=== PATIENT | female | born 1985 ===

== ENCOUNTER → 2018-09-24 15:54 | Observation (INO) ==
[2018-09-24 13:36] LABS: Basophils % 0.2 %; Eosinophils # 0.1 K/mcL (0.0-0.6); Eosinophils % 0.6 %; Hematocrit 36.4 % (35.3-44.9); Hemoglobin 12.9 g/dL (11.5-15.4); Immature Granulocytes % 0.5 % (0-4); Lymphocytes # 1.3 K/mcL (0.6-4.6); Lymphocytes % 11.3 %; Mean Corpuscular HGB Conc 35.4 g/dL (31.6-35.5); Mean Corpuscular Hemoglobin 33.2 pg (28.0-33.3); Mean Corpuscular Volume 93.8 fL (83.0-100.0); Monocytes # 0.9 K/mcL (0.0-1.3); Monocytes % 7.4 %; Neutrophils # 9.4 K/mcL (1.6-8.9); Platelet Count 190 K/mcL (140-400); Red Blood Count 3.88 M/mcL (3.82-4.97)
[2018-09-24 13:56] LABS: Amphetamine Screen,Urine Negative ng/mL (Cutoff=1000); Barbiturate Screen,Urine Negative ng/mL (Cutoff=200); Benzodiazepines Screen,Urine Negative ng/mL (Cutoff=200); Cannabinoid Screen,Urine Negative ng/mL (Cutoff = 50); Cocaine Screen,Urine Negative ng/mL (Cutoff= 300); Creatinine,Urine 166 mg/dL; Opiate Screen,Urine Negative ng/mL (Cutoff=300); Phencyclidine Screen,Urine Negative ng/mL (Cutoff=25); Protein/Creatinine Ratio,Urine 0.23 mg/mg (0.00-0.20)
[2018-09-24 13:57] LABS: Alanine Aminotransferase 8 Units/L (7-52); Aspartate Amino Transferase 15 Units/L (13-39); BUN/Creatinine Ratio 18 (6-26); Blood Urea Nitrogen 11 mg/dL (6-20); Lactate Dehydrogenase 161 Units/L (140-271); Uric Acid 4.7 mg/dL (2.3-7.6); eGFR For Non-African Americans > 60 (> 60)
--- NOTE | 2018-09-24 14:23 | OB/GYN Progress Note ---
Date of Encounter: 09/24/18 Time of Encounter: 14:20 - Assessment and Plan (1) 37 weeks gestation of Current Visit: Yes Status: Acute Pre-eclampsia labs WNL Reactive NST Serial blood pressures WNL IV fluids for rehydration given Discharge home with labor precautions and pre-eclampsia precautions Follow up in office as scheduled on and PRN POC per consult with Dr Stehpenson Subjective - Subjective Principal diagnosis: Pre-eclampsia Evaluation Interval history: Ms Wasserman is a at 37 weeks and 1 day that presents to triage with c/o hot flashes at work with a blood pressure of 150's/90's. She states she did work in her yard outside all day yesterday with minimal water intake. She states positive movement. She denies headaches, vision changes, epigastric pain, leaking of fluid, vaginal discharge, and contractions. She has been seen by Dr Kim for her care. She has had 3 previous vaginal deliveries without complications. Antepartum ROS: movement normal Objective - Exam FHR comments: FHTs baseline 150 moderate variability with 15 x 15 accels and no decels Uterine irritability per toco. Mild contractions per palpation with soft resting tone. Contractions every 1-4 minutes lasting 20-40 seconds Auscultation: bilateral: normal Abdomen: Present: normal appearance, soft, gravid Uterus: Present: normal. Absent: firm, tenderness - Labs Labs: Abnormal lab results WBC 11.8 K/mcL (4.3-11.1) H 09/24/18 13:10 9.4 K/mcL (1.6-8.9) H 09/24/18 13:10 Protein/Creatinin Ratio 0.23 mg/mg (0.00-0.20) H 09/24/18 13:10 38 mg/dL (1-14) H 09/24/18 13:10
[~2018-09-24 15:54] MED LIST: Ringers Solution, Lactated 1,000 ML IVC ONE
== END | disposition home or self-care (01) ==
LOC: 1NENULAB
PROVIDERS: ADMIT Advanced Practice Midwife; ATTEND Advanced Practice Midwife

== ENCOUNTER 2018-10-07 07:30 | Inpatient (IN) ==
[2018-10-07] MEDS ORDERED: Famotidine 20 MG/2 ML VIAL IVP PRN (07:52)
[2018-10-07] MEDS ORDERED: Metoclopramide 10 MG/2 ML VIAL IVP PRN (07:52)
[2018-10-07] MEDS ORDERED: Ondansetron 4 MG/2 ML VIAL IVP PRN (07:52)
[2018-10-07] MEDS ORDERED: *HR* Nalbuphine 10 MG/ML AMPUL IVP PRN (07:52)
[2018-10-07] MEDS ORDERED: Naloxone 0.4 MG/ML INJ IVP PRN (07:52)
[2018-10-07] MEDS ORDERED: Oxytocin 20 units/ LR 1000 mL 20 UNIT/1,000 ML BAG IVC SCH ×2 (08:00→21:02)
[2018-10-07] MEDS ORDERED: Ringers Solution, Lactated 1,000 ML IVC SCH (08:00)
[2018-10-07 08:28] LABS: Basophils % 0.2 %; Eosinophils # 0.1 K/mcL (0.0-0.6); Hematocrit 36.1 % (35.3-44.9); Hemoglobin 12.8 g/dL (11.5-15.4); Immature Granulocytes % 0.5 % (0-4); Lymphocytes # 1.5 K/mcL (0.6-4.6); Lymphocytes % 14.1 %; Mean Corpuscular HGB Conc 35.5 g/dL (31.6-35.5); Mean Corpuscular Hemoglobin 33.4 pg (28.0-33.3); Mean Corpuscular Volume 94.3 fL (83.0-100.0); Mean Platelet Volume 10.4 fL (9.4-12.4); Monocytes # 0.8 K/mcL (0.0-1.3); Monocytes % 7.9 %; Neutrophils # 7.9 K/mcL (1.6-8.9); Platelet Count 175 K/mcL (140-400); Red Blood Count 3.83 M/mcL (3.82-4.97); Segmented Neutrophils % 76.3 %
--- NOTE | 2018-10-07 08:46 | Event Note ---
Date of Encounter: 10/07/18 Time of Encounter: 08:44 Discussed cervical ripening balloon procedure with patient. She is agreeable to proceed. Double cervical ripening balloon inserted without difficulty. 80ml sterile water instilled into uterine balloon, 60 mL sterile water instilled into vaginal balloon. Patient tolerated with minimal discomfort.
[2018-10-07 08:47] LABS: Alanine Aminotransferase 8 Units/L (7-52); Aspartate Amino Transferase 14 Units/L (13-39); BUN/Creatinine Ratio 17 (6-26); Blood Urea Nitrogen 9 mg/dL (6-20); Lactate Dehydrogenase 154 Units/L (140-271); Uric Acid 4.4 mg/dL (2.3-7.6); eGFR For Non-African Americans > 60 (> 60)
[2018-10-07 09:11] LABS: Amphetamine Screen,Urine Negative ng/mL (Cutoff=1000); Barbiturate Screen,Urine Negative ng/mL (Cutoff=200); Benzodiazepines Screen,Urine Negative ng/mL (Cutoff=200); Cannabinoid Screen,Urine Negative ng/mL (Cutoff = 50); Cocaine Screen,Urine Negative ng/mL (Cutoff= 300); Opiate Screen,Urine Negative ng/mL (Cutoff=300); Phencyclidine Screen,Urine Negative ng/mL (Cutoff=25)
[2018-10-07 09:28] LABS: Protein/Creatinine Ratio,Urine 0.31 mg/mg (0.00-0.20)
[2018-10-07] MEDS ORDERED: *HR* Ropivacaine/PF 0.2% 20 ML VIAL ONE (09:58)
[2018-10-07] MEDS ORDERED: *HR* FentaNYL (PF) 100 MCG/2 ML VIAL ONE (09:58)
[2018-10-07] MEDS ORDERED: Epidural Premix (fent/bupiv) 110 ML EP ONE (10:03)
[2018-10-07] MEDS ORDERED: Lidocaine -MPF 2% 5 ML VIAL ONE (11:48)
--- NOTE | 2018-10-07 11:58 | OB/GYN History & Physical ---
Date of Encounter: 10/07/18 Time of Encounter: 12:27 Assessment and Plan (1) 39 weeks gestation of Current visit: Yes Status: Acute Admitted to L&D for IOL Double jimenez in place Started on Pitocin Epidural in place and effective GBS (-) Anticipate vaginal delivery (2) NST (non-stress test) reactive Current visit: Yes Status: Acute FHTs baseline 140, moderate variability with 15x15 accels no decels History of Present Illness Chief complaint: IOL HPI: Ms. Wasserman is a 33 year old female at 39 +0 weeks, patient of Dr. Kim who presented to L&D for IOL. Patient states that she has had some e levated BPs and HAs during this , but HAs resolved after she stopped BP and anxiety medications. Was evaluated for pre-eclampsia on 09/24 with normal labs, normal BPs, and reactive NST and was discharged home. Previous 3 pregnancies were all vaginal deliveries with shoulder dystocias. Patient admits to good movement, denies vaginal bleeding or LOF. No significant PMH. A+ blood type GBS negative Hep B SAG non-reactive G/C negative RPR non-reactive HIV Ag/Ab non-reactive Hep C ab non-reactive Varicella IgG immune Rubella IgG immune Past Med Surg Social Fam HX - Past Medical History Medical history: hypertension Psychiatric history: anxiety - Past Surgical History Surgical History: no surgical history - Social History Smoking Status: Never smoker Smokeless Tobacco Status: No Alcohol use: none Drug use: none - Family History Grandmother Living Status: Still Living Hx Family Cancer: Yes (breastcancer) Mother Family Member Ethnicity: Non- Living Status: Still Living Hx Family Cardiac Disorders: Yes (hypertension) Hx Family Respiratory Disorders: No Hx Family Cancer: No Hx Family GI Disorders: No Hx Family Genitourinary Disorders: No Hx Family Endocrine Disorder: No Hx Family Musculoskeletal Disorders: No Hx Family Neuromuscular Disorders: No Hx Family Neurologic Disorders: No Hx Family HEENT Disorders: No Hx Family Autoimmune Disorders: No Hx Family Reproductive Disorders: No Hx Family Psychosocial Disorders: No Hx Family Medical Disorders: No Obstetrical History - Pregnancies : 4 Para: 3 Term: 3 : 0 Ab's: 0 Livin Medications and Allergies Vit #108/Iron/FA [ One Tablet] 1 each PO DAILY 09/24/18 [History] Omeprazole 1 / PO DAILY PRN 10/07/18 [History] Allergy/AdvReac Type Severity Reaction Status Date / Time No Known Allergies Allergy Verified 09/18/18 13:30 Review of System OB - Constitutional Constitutional ROS IM: no chills, no fever(s), no headache(s) - Nose, mouth, and throat Nose, mouth and throat: no nasal congestion, no sore throat - Cardiovascular Cardiovascular: edema, no chest pain - Respiratory Respiratory: no cough, no dyspnea - Gastrointestinal Gastrointestinal: no abdominal pain, no change in bowel habits - Genitourinary Genitourinary: no abnormal vaginal bleeding, no difficulty voiding - Integumentary Integumentary: no lesions, no rash - Neurological Nerological: no dizziness, no headache(s) - Psychiatric Psychiatric: no behavioral changes - Hematologic/Lymphatic Hematologic/Lymphatic: no easy bleeding, no easy bruising - Allergic/Immunologic Allergic/Immunologic: no itchy eyes, no seasonal rhinorrhea Exam - Constitutional Constitutional: no acute distress, obese - HEENT HEENT: EOMI, Normocephaly, Mucus Membranes Moist - Lungs Respiratory exam: CTAB - Cardiovascular Cardiovascular exam: RRR, +S1, +S2 - Abdomen Abdomen: Present: bowel sounds normal, gravid - Extremities Extremities exam: normal inspection, pedal edema (non-pitting) - Cervix Dilation: 2 Station: -3 Results Result Diagrams: 10/07/18 08:10 10/07/18 08:10 Abnormal lab results MCH 33.4 pg (28.0-33.3) H 10/07/18 08:10 0.53 mg/dL (0.60-1.20) L 10/07/18 08:10 Protein/Creatinin Ratio 0.31 mg/mg (0.00-0.20) H 10/07/18 08:10 19 mg/dL (1-14) H 10/07/18 08:10 All other labs normal. - VTE Reasons for not Prescribing Prophylaxis: Treatment not Indicated - Low risk for VTE
--- NOTE | 2018-10-07 12:35 | Anesthesia Evaluation PreOp ---
Date of Encounter: 10/07/18 Time of Encounter: 09:53 - Past History Planned Operation: mariangel Cardiac History: HTN (chronic) Pulmonary History: Denies Any Significant HX Other Medical History: Other (anxiety) Anesthesia History: No Prior Anesthetic Complications, Past Anesthesia : Yes (40 weeks, ) Alcohol Use: none Drug use: none Medications and Allergies Vit #108/Iron/FA [ One Tablet] 1 each PO DAILY 09/24/18 [History] Omeprazole 1 / PO DAILY PRN 10/07/18 [History] Allergy/AdvReac Type Severity Reaction Status Date / Time No Known Allergies Allergy Verified 09/18/18 13:30 - Meds/Allergy Pre-op Review Medications Reviewed: Yes Allergies Reviewed: Yes Beta Blockers on Current Med List: No Anesthesia Results - Labs 10/07/18 08:10 10/07/18 08:10 Anesthesia Exam O2 Sat Height 1.6 m Height 1.6 m Weight 106 kg Weight 106 kg Height: 63 Weight: 233 - HEENT Pupil (Motor): Pupils equal Mallampati: II Teeth: Normal Oral Opening: Greater than 3 - DE ALCHOLIZER LOC: Oriented DE ALCHOLIZER Motor: Normal RUE, Normal LUE, Normal RLE, Normal LLE, Normal Face DE ALCHOLIZER Sensory: Normal: RUE, LUE, RLE, LLE, Face - Cardiac Rhythm: Regular Murmur: None JVD: No Carotid Bruit: No - Pulmonary Breath Sounds: bilateral Clear Respiratory Effort: Symmetrical Anesthesia Assess/Plan ASA Score: 2 Level of consciousness: Cooperative Anesthetic Plan: Epidural Monitoring Plan: Standard Monitors
--- NOTE | 2018-10-07 12:39 | Anesthesia Procedures ---
Date of Encounter: 10/07/18 Time of Encounter: 09:53 Procedures: Anesthesia - Epidural/Spinal Patient ID/Chart reviewed: Yes Patient examined: Yes OB Eval: Gestational age: 40 OB Eval: : 4 OB Eval: Hx Para: 3 OB Eval: Dilated at (cm): 3 OB Eval: Contractions: Non-stressed pattern Consent Obtained: Yes Supplemental Oxygen: None/Room Air Site Prep: Aseptic Technique Patient position: upright Local Anesthetic: Lidocaine 1% Amount of Local Anesthetic used: 3 Touhy Needle Gauge: 18 Touhy Needle Depth (cm): 7 Catheter Depth at Skin (cm): 12 Test Dose (1.5% Lido + Epi): Volume given (mls): 3 Test Dose Result: Negative Loading Dose: Fentanyl (mcg): 100 Loading Dose: Other: ropivicaine 0.2% 4ml Loading Dose Administered: Thru Touhy Needle Infusion Med: 0.125% Bupivacaine w/ 2 mcg/ml Fentanyl Infusion Rate (mls/hr): [address]: Tegaderm Interspace Used: L3-L4 Loss of Resistance (GISEL): Yes Blood: No CSF: No Paresthesia: No Procedure: strict asepsis, L3-4 x 1 attempt, FHR unchanged. VS per nurses notes
[2018-10-07] MEDS ORDERED: Epidural Premix (fent/bupiv) 110 ML EP SCH (12:45)
--- NOTE | 2018-10-07 12:50 | Event Note ---
Date of Encounter: 10/07/18 Time of Encounter: 12:49 SVE to assess for jimenez removal. Uterine balloon easily removed with gentle tug. SVE 7 cm/60/-2
--- NOTE | 2018-10-07 18:05 | OB/GYN Procedure Note ---
Delivery - Delivery Date: 10/07/18 Provider: Jeramie Kim Intrapartum events: none Delivery induction: oxytocin, jimenez Delivery augmentation: rupture of membranes, pitocin Delivery monitor: external FHT, external uterine Anesthesia: epidural Quantitated Blood Loss: 200 - Infant (s) A Infant Delivery Date: 10/07/18 Infant Delivery Time: 17:50 Presentation: vertex Position: OA Route of delivery: Gender: Male Viability: Viable Pounds: 7 Ounces: 8 Weight Gram: 3.39 kg at 1 minute: 7 at 5 mins: 8 Shoulder Dystocia: not encountered Specimens collected: cord blood Placenta: spontaneous Cord: nuchal cord, 3 umbilical vessels, nuchal cut - Repair Episiotomy: none Laceration Description: Perineal - 1st Degree - Complications Delivery complications: none Delivery comments: This patient progressed to complete and pushing. She had a spontaneous vaginal delivery of a male infant over an intact perineum. Infant's head was in the perineum easily. There was a tight nuchal cord which was clamped and cut on the perineum. The rest the infant was then delivered easily and with 1 push. cried immediately upon delivery. was placed immediately on mother's abdomen and nursing to care of baby. was crying briskly. Cord bloods obtained. Placenta was delivered spontaneously intact. There are no cervical, vaginal or periurethral lacerations noted. There was a first-degree perineal laceration repaired with 3-0 Vicryl suture in usual fashion. Patient delivered a male infant weight was 7 lbs. 8 oz. 3390 g. Apgars are 8 at 1 min [employer] and 9 at 5 minutes. Estimated blood loss 200 mL.
[2018-10-07] MEDS ORDERED: Acetaminophen 325 MG TABLET PO PRN (21:02)
[2018-10-07] MEDS ORDERED: Measles/Mumps/Rubella Vacc 0.5 ML VIAL SQ PRN (21:02)
[2018-10-08] MEDS: Ibuprofen 600 MG TABLET PO PRN ×2 (01:19→07:41)
[2018-10-08 05:58] LABS: Basophils % 0.2 %; Eosinophils # 0.1 K/mcL (0.0-0.6); Eosinophils % 1.1 %; Hematocrit 32.4 % (35.3-44.9); Hemoglobin 11.4 g/dL (11.5-15.4); Immature Granulocytes % 0.5 % (0-4); Lymphocytes # 1.4 K/mcL (0.6-4.6); Lymphocytes % 10.7 %; Mean Corpuscular HGB Conc 35.2 g/dL (31.6-35.5); Mean Corpuscular Hemoglobin 33.1 pg (28.0-33.3); Mean Corpuscular Volume 94.2 fL (83.0-100.0); Mean Platelet Volume 10.5 fL (9.4-12.4); Monocytes # 1.1 K/mcL (0.0-1.3); Monocytes % 8.6 %; Neutrophils # 10.4 K/mcL (1.6-8.9); Platelet Count 150 K/mcL (140-400); Red Blood Count 3.44 M/mcL (3.82-4.97); Segmented Neutrophils % 78.9 %
[2018-10-08 07:56] VITALS: BP 126/81
--- NOTE | 2018-10-08 08:05 | Discharge Summary ---
Date of Encounter: 10/08/18 Time of Encounter: 08:03 - Discharge Diagnosis (1) Status post vaginal delivery Priority: Primary Status: Acute Comments: s/p after induction at 39 weeks is recovering well. She was able to t olerate regular diet and reports flatus but denies BM. Denies burning with urination, hematuria, or increased frequency but states that jimenez left uncomfortable feeing. Denies fever. She reports decrease to minimal bleeding with clot passed overnight examined by RN.She has PMHX of omeprazole and anxiety but stopped SSRI during - she wants to discuss safety in at out patient follow up with [employer] [employer] (2) Breast feeding status of mother Priority: Secondary Status: Acute Comments: Breast feeding well - use pump present at home (3) Anemia Priority: Secondary Status: Acute Comments: HgB 11.1 from 12.8 is stable and expected loss with vaginal delivery - continue vitamin - follow up out patient Qualifiers: Other causes of anemia: acute posthemorrhagic Qualified Code(s): D62 - Acute posthemorrhagic anemia (4) Leukocytosis Priority: Secondary Status: Acute Comments: WBC 13.1 from 10.3 mild increase etiology likely reactive with out clinical signs of infectious process. Qualifiers: Leukocytosis type: unspecified Qualified Code(s): D72.829 - Elevated white blood cell count, unspecified - Discharge Medications Prescriptions: New Ferrous Sulfate 325 mg PO 0800 #30 tablet Ibuprofen [Motrin] 600 mg PO Q6HR PRN #60 tablet PRN Reason: pain Continued Vit #108/Iron/FA [ One Tablet] 1 each PO DAILY Omeprazole 1 / PO DAILY PRN PRN Reason: Heartburn Home Medications: Vit #108/Iron/FA [ One Tablet] 1 each PO DAILY 09/24/18 [History] Omeprazole 1 / PO DAILY PRN 10/07/18 [History] Ferrous Sulfate 325 mg PO 0800 #30 tablet 10/08/18 [Rx] Ibuprofen [Motrin] 600 mg PO Q6HR PRN #60 tablet 10/08/18 [Rx] Allergies/Adverse Reactions: Allergy/AdvReac Type Severity Reaction Status Date / Time No Known Allergies Allergy Verified 09/18/18 13:30 Data Procedures and tests throughout hospitalization: Laboratory Tests 10/07/18 10/07/18 10/07/18 08:10 08:10 08:10 WBC 10.3 RBC 3.83 Hgb 12.8 Hct 36.1 MCV 94.3 MCH 33.4 H MCHC 35.5 RDW 13.0 Plt Count 175 MPV 10.4 Immature Gran % 0.5 Seg Neutrophils % 76.3 Lymphocytes % 14.1 Monocytes % 7.9 Eosinophils % 1.0 Basophils % 0.2 Neutrophils # 7.9 Lymphocytes # 1.5 Monocytes # 0.8 Eosinophils # 0.1 Basophils # 0.0 BUN Creatinine Est GFR ( Amer) Est GFR (Non-Af Amer) BUN/Creatinine Ratio Uric Acid AST ALT Lactate Dehydrogenase Urine Creatinine 62 Protein/Creatinin Ratio 0.31 H Urine Total Protein 19 H Urine Opiates Screen Negative Ur Barbiturates Screen Negative Ur Phencyclidine Scrn Negative Ur Amphetamines Screen Negative U Benzodiazepines Scrn Negative Urine Cocaine Screen Negative U Marijuana (THC) Screen Negative Ur Drug Screen Interp See Below 10/07/18 10/08/18 08:10 05:44 WBC 13.1 H RBC 3.44 L Hgb 11.4 L Hct 32.4 L MCV 94.2 MCH 33.1 MCHC 35.2 RDW 13.0 Plt Count 150 MPV 10.5 Immature Gran % 0.5 Seg Neutrophils % 78.9 Lymphocytes % 10.7 Monocytes % 8.6 Eosinophils % 1.1 Basophils % 0.2 Neutrophils # 10.4 H Lymphocytes # 1.4 Monocytes # 1.1 Eosinophils # 0.1 Basophils # 0.0 BUN 9 Creatinine 0.53 L Est GFR ( Amer) > 60 Est GFR (Non-Af Amer) > 60 BUN/Creatinine Ratio 17 Uric Acid 4.4 AST 14 ALT 8 Lactate Dehydrogenase 154 Urine Creatinine Protein/Creatinin Ratio Urine Total Protein Urine Opiates Screen Ur Barbiturates Screen Ur Phencyclidine Scrn Ur Amphetamines Screen U Benzodiazepines Scrn Urine Cocaine Screen U Marijuana (THC) Screen Ur Drug Screen Interp Labs on day of discharge: Labs from last 24 hours 10/08/18 10/07/18 10/07/18 05:44 08:10 08:10 WBC 13.1 H 10.3 RBC 3.44 L 3.83 Hgb 11.4 L 12.8 Hct 32.4 L 36.1 MCV 94.2 94.3 MCH 33.1 33.4 H MCHC 35.2 35.5 RDW 13.0 13.0 Plt Count 150 175 MPV 10.5 10.4 Immature Gran % 0.5 0.5 Seg Neutrophils % 78.9 76.3 Lymphocytes % 10.7 14.1 Monocytes % 8.6 7.9 Eosinophils % 1.1 1.0 Basophils % 0.2 0.2 Neutrophils # 10.4 H 7.9 Lymphocytes # 1.4 1.5 Monocytes # 1.1 0.8 Eosinophils # 0.1 0.1 Basophils # 0.0 0.0 BUN 9 Creatinine 0.53 L Est GFR ( Amer) > 60 Est GFR (Non-Af Amer) > 60 BUN/Creatinine Ratio 17 Uric Acid 4.4 AST 14 ALT 8 Lactate Dehydrogenase 154 Urine Creatinine Protein/Creatinin Ratio Urine Total Protein Urine Opiates Screen Ur Barbiturates Screen Ur Phencyclidine Scrn Ur Amphetamines Screen U Benzodiazepines Scrn Urine Cocaine Screen U Marijuana (THC) Screen Ur Drug Screen Interp 10/07/18 10/07/18 08:10 08:10 WBC RBC Hgb Hct MCV MCH MCHC RDW Plt Count MPV Immature Gran % Seg Neutrophils % Lymphocytes % Monocytes % Eosinophils % Basophils % Neutrophils # Lymphocytes # Monocytes # Eosinophils # Basophils # BUN Creatinine Est GFR ( Amer) Est GFR (Non-Af Amer) BUN/Creatinine Ratio Uric Acid AST ALT Lactate Dehydrogenase Urine Creatinine 62 Protein/Creatinin Ratio 0.31 H Urine Total Protein 19 H Urine Opiates Screen Negative Ur Barbiturates Screen Negative Ur Phencyclidine Scrn Negative Ur Amphetamines Screen Negative U Benzodiazepines Scrn Negative Urine Cocaine Screen Negative U Marijuana (THC) Screen Negative Ur Drug Screen Interp See Below Date of admission: 10/07/18 07:44 Primary care physician: Frederick Reaves DO Consults: 10/07/18 21:02 Consult to Admissions Supervisor [CONS] Routine Comment: Vaginal delivery, consult needed Discharging clinician: Alice Leos Anticipated date of discharge: 10/08/18 - Patient Status Disposition: Home, Self-Care Condition: Good Functional capacity at discharge: independent ambulation Overall status at discharge: patient is progressing back to baseline - Discharge Instructions Follow Up With: Alejo Reaves DO [Primary Care Provider] - - Diet and Activity Activity: as per physical therapy Diet: advance to your usual diet Hospital Course Reason for admission: induction of labor Delivery: Episiotomy: none Laceration: 1st degree Other procedures: none complications: none Discharge diagnosis: IUP at term delivered baby: male Hospital course: Delivery - Delivery Date: 10/07/18 Provider: Jeramie Kim Intrapartum events: none Delivery induction: oxytocin, jimenez Delivery augmentation: rupture of membranes, pitocin Delivery monitor: external FHT, external uterine Anesthesia: epidural Quantitated Blood Loss: 200 - Infant (s) A Infant Delivery Date: 10/07/18 Delivery Time: 17:50 Presentation: vertex Position: OA Route of delivery: Gender: Male Viability: Viable Pounds: 7 Ounces: 8 Weight Gram: 3.39 kg at 1 minute: 7 at 5 mins: 8 Shoulder Dystocia: not encountered Specimens collected: cord blood Placenta: spontaneous Cord: nuchal cord, 3 umbilical vessels, nuchal cut - Repair Episiotomy: none Laceration Description: Perineal - 1st Degree - Complications Delivery complications: none Delivery comments: This patient progressed to complete and pushing. She had a spontaneous vaginal delivery of a male over an intact perineum. Infant's head was in the perineum easily. There was a tight nuchal cord which was clamped and cut on the perineum. The rest the infant was then delivered easily and with 1 push. cried immediately upon delivery. Infant was placed immediately on mother's abdomen and nursing to care of baby. Infant was crying briskly. Cord bloods obtained. Placenta was delivered spontaneously intact. There are no cervical, vaginal or periurethral lacerations noted. There was a first-degree perineal laceration repaired with 3-0 Vicryl suture in usual fashion. Patient delivered a male weight was 7 lbs. 8 oz. 3390 g. Apgars are 8 at 1 minute and 9 at 5 minutes. Estimated blood loss 200 mL. Time Attestation: Total time spent providing and/or coordinating discharge services: Exam - Constitutional Vitals: Temp Pulse Resp BP Pulse Ox 97.9 F 87 16 126/81 97 10/08/18 07:55 10/08/18 07:55 10/08/18 07:55 10/08/18 07:55 10/08/18 04:00 General appearance IM: cooperative, A&O X 3, morbidly obese, pleasant, no acute distress, answers questions appropriately - Respiratory Respiratory exam: Present: CTAB. Absent: accessory muscle use, wheezes - Cardiovascular Cardiovascular exam IM: Present: RRR. Absent: diastolic murmur, systolic murmur - GI/Abdominal GI/Abdominal exam IM: firm, normal bowel sounds - Rectal Rectal exam: deferred - External exam: normal external exam Uterine Tone: Firm Uterus Position: 2 Fingers Below Umbilicus - Extremities Exam Extremities exam IM: Present: full ROM, radial pulses palpable and symmetrical. Absent: calf tenderness, pedal edema - Neurological Exam Neurological exam: alert, oriented X3, no focal deficits - Attending Attestation I have seen and examined this patient and I agree with this assessment. Courtney Miller CNM
[2018-10-08] MEDS ORDERED: Prenatal Vit/FA 1 EACH TABLET PO SCH (09:00)
== END 2018-10-08 13:30 | disposition home or self-care (01) | DRG 806 ==
LOC: 1NENULAB 07:44 → 1NENUOBS 21:21
PROVIDERS: ADMIT Obstetrics & Gynecology; ATTEND Obstetrics & Gynecology